=== PATIENT | male | born 1960 | race Caucasian/White ===

== ENCOUNTER 2016-12-04 14:42 | Emergency (ER) ==
[2016-12-04] MEDS ORDERED: MORPHINE 2 MG/ML SYRINGE IVP STA (14:47)
[2016-12-04] MEDS ORDERED: ASPIRIN CHEWABLE PO STA (14:47)
[2016-12-04] MEDS ORDERED: ZOFRAN 4 MG/2 ML IVP STA (14:47)
--- NOTE | 2016-12-04 14:50 | ED.PDOC ---
General ED Provider: Dr. JP TONY Chief Complaint: Chest Pain Stated Complaint: Chest pain, mid sternal, radiates to left arm, more like heavyness feeling. Time Seen by Physician: 14:48 Primary Care Provider: [facility] Nursing and Triage Documentation Reviewed and Agree: Yes Cardiovascular Complaint Exam - Chest Pain Complaint/Exam Onset: Sudden Symptoms Are: Still present Timing: Constant Initial Severity: Moderate Current Severity: Severe Location: Reports: Midsternal Pain Radiates: Reports: Left shoulder, Left arm Character: Reports: Dull, Aching, Heaviness Aggravating: Reports: Exertion Alleviating: Reports: None Associated Signs and Symptoms: Reports: Diaphoresis. Denies: Nausea, Vomiting, Fever, Palpitations, Cough, Hemoptysis, Back pain, Abdominal pain, Dizziness, Short of air, Calf pain, Calf swelling Related History: Reports: Similar episode (years ago, had stents) Related Surgical History: Reports: None AMI/ACS Risk Factors: Reports: Myocardial Infarction Pulmonary Embolism Risk Factors: Reports: None Prior Care for this Complaint: No Recent Stress Test: No Recent Echo/LV Function: No JVD Present: No Subcutaneous Emphysema Present: No Diminshed Breath Sounds: No Reproducible Chest Wall Pain: No Bilateral Pulses Present: Yes Unequal Pulses Noted: No If Risk Factors for AMI/ACS Consider: EKG, Cardiac Enzymes, Serial Studies, Oxygen, Aspirin Differential Diagnoses: ACS, Stable Angina Review of Systems - Review Of Systems Constitutional: Reports: Malaise, Weakness Eyes: Reports: No symptoms Ears, Nose, Mouth, Throat: Reports: No symptoms Respiratory: Reports: No symptoms Cardiac: Reports: Chest pain GI: Reports: No symptoms : Reports: No symptoms Musculoskeletal: Reports: No symptoms Skin: Reports: No symptoms Neurological: Reports: No symptoms Endocrine: Reports: No symptoms Hematologic/Lymphatic: Reports: No symptoms All Other Systems: Reviewed and Negative Past Medical History - Past Medical History Previously Healthy: Yes Endocrine: Reports: None Cardiovascular: Reports: CAD (s/p stents) Respiratory: Reports: None Hematological: Reports: None Gastrointestinal: Reports: None Genitourinary: Reports: None Neuro/Psych: Reports: None Musculoskeletal: Reports: None Cancer: Reports: None - Surgical History General Surgical History: Reports: None - Family History Family History: Reports: None - Social History Smoking Status: Current every day smoker Smoking Cessation Counseling Time: > 3 min - 10 min Hx Substance Use: No Alcohol Screening: None Physical Exam - Physical Exam Appearance: Ill-appearing Pain Distress: Moderate Eyes: MEL, EOMI, Conjunctiva clear ENT: Ears normal, Nose normal, Oropharynx normal Respiratory: Airway patent, Breath sounds clear, Breath sounds equal, Respirations nonlabored Cardiovascular: RRR, Pulses normal, No rub, No murmur GI/: Soft, Nontender, No masses, Bowel sounds normal, No Organomegaly Musculoskeletal: Normal strength, ROM intact, No edema, No calf tenderness Skin: Warm, Dry, Normal color Neurological: Sensation intact, Motor intact, Reflexes intact, Cranial nerves intact, Alert, Oriented Psychiatric: Affect appropriate, Mood appropriate Interpretation - EKG Interpretation Time of EKG #1: 15:00 Rate: Normal Rhythm: Sinus Cornucopia: NL ST Segment: Other (st depression.) Physician Notification - Case Discussed Time of Notification: 15:13 (ed physician dr jones) Critical Care Note - Critical Care Note Total Time (mins): 0 Course - Course Hematology/Chemistry: 12/04/16 14:55 Orders, Labs, Meds: Lab Review 12/04/16 14:55 WBC 6.87 RBC 5.04 Hgb 14.9 Hct 44.0 MCV 87.3 MCH 29.6 MCHC 33.9 RDW Coeff of Vilma 13.4 Plt Count 155 Immature Gran % (Auto) 0.3 Neut % (Auto) 65.9 Lymph % (Auto) 22.6 [place]ison % (Auto) 8.4 Eos % (Auto) 2.5 Baso % (Auto) 0.3 Immature Gran # (Auto) 0.0 Neut # 4.5 Lymph # 1.6 Addison # 0.6 Eos # 0.2 Baso # 0.0 Orders Category Date Time Status EKG-(ED ONLY) Stat CARDIO 12/04/16 14:47 Completed EKG-(ED ONLY) Stat CARDIO 12/04/16 15:09 Ordered ED IV/MEDIPORT/POWERPORT .ONCE EMERGENCY 12/04/16 14:47 Active CBC W/ AUTO DIFF Stat LAB 12/04/16 14:55 Completed COMPREHENSIVE METABOLIC PANEL Stat LAB 12/04/16 14:55 Received CREATINE KINASE Stat LAB 12/04/16 14:55 Received D-DIMER Stat LAB 12/04/16 14:55 Received TROPONIN I Stat LAB 12/04/16 14:55 Received 0.9 % Sodium Chloride [Saline Flush] MEDS 12/04/16 14:47 Ordered 1 syr IVF PRN PRN Aspirin [Aspirin Chewable] MEDS 12/04/16 14:47 Discontinued 324 mg PO ONCE STA Morphine Sulfate [Morphine 2 mg/ml Syringe] MEDS 12/04/16 14:47 Discontinued 2 mg IVP ONCE STA Ondansetron HCl/Pf [Zofran 4 mg/2 ml] MEDS 12/04/16 14:47 Discontinued 4 mg IVP ONCE STA CHEST, 1V AP ONLY Stat RADS 12/04/16 14:47 Taken Medications Generic Name Dose Route Start Last Admin Trade Name Freq PRN Reason Stop Dose Admin Sodium Chloride 1 syr 12/04/16 14:47 12/04/16 14:57 Saline Flush IVF 1 syr PRN PRN Administration To flush IV Discontinued Medications Generic Name Dose Route Start Last Admin Trade Name Freq PRN Reason Stop Dose Admin Aspirin 324 mg 12/04/16 14:47 12/04/16 14:56 Aspirin Chewable PO 12/04/16 14:48 324 mg ONCE STA Administration Morphine Sulfate 2 mg 12/04/16 14:47 12/04/16 14:57 Morphine 2 Mg/Ml Syringe IVP 12/04/16 14:48 2 mg ONCE STA Administration Ondansetron HCl 4 mg 12/04/16 14:47 12/04/16 14:57 Zofran 4 Mg/2 Ml IVP 12/04/16 14:48 4 mg ONCE STA Administration Vital Signs: Temp Pulse Resp BP Pulse Ox 12/04/16 14:42 97.4 F L 88 22 160/84 H 95 ROSIO Risk Score ROSIO Risk Score: Risk Score Odds of by 30D 0 0.1 (0.1-0.2) 1 0.3 (0.2-0.3) 2 0.4 (0.3-0.5) 3 0.7 (0.6-0.9) 4 1.2 (1.0-1.5) 5 2.2 (1.9-2.6) 6 3.0 (2.5-3.6) 7 4.8 (3.8-6.1) Departure - Departure Time of Disposition: 15:13 Disposition: TSF SHORT-TRM HOSP Discharge Problem: Chest pain, Angina at rest Instructions: Chest Pain (ED) Condition: Stable Pt referred to PMD for follow-up: No Allergies/Adverse Reactions: Allergies clopidogrel bisulfate [From Plavix] Allergy (Severe, Verified 04/14/14 12:15) rash pt to get medical alert necklace Disposition Discussed With: Patient, Family
[2016-12-04 14:52] VITALS: BP 160/84; TEMP 97.4; BMI 26.4
[2016-12-04 14:58] LABS: BASOPHILS % (AUTO) 0.3 % (0.0-3.0); EOSINOPHILS # (AUTO) 0.2 K/ul (0.0-0.7); EOSINOPHILS % (AUTO) 2.5 % (0.0-7.0); HEMOGLOBIN 14.9 g/dl (14.0-18.0); IMMATURE GRANULOCYTE % (AUTO) 0.3 % (0.0-5.0); LYMPHOCYTES # (AUTO) 1.6 K/uL (0.60-3.4); LYMPHOCYTES % (AUTO) 22.6 (10.0-50.0); MEAN CORPUSCULAR HEMOGLOBIN 29.6 pg (27.0-31.0); MEAN CORPUSCULAR HGB CONC 33.9 (31.8-35.4); MEAN CORPUSCULAR VOLUME 87.3 fl (80.0-94.0); MONOCYTES # (AUTO) 0.6 K/uL (0.4-2.0); MONOCYTES % (AUTO) 8.4 (0-10); NEUTROPHILS # (AUTO) 4.5 K/ul (2.0-6.9); NEUTROPHILS % (AUTO) 65.9; PLATELET COUNT 155 10^3/uL (140-440); RED BLOOD COUNT 5.04 10^6/ul (4.70-6.10); WHITE BLOOD COUNT 6.87 K/ul (4.2-10.2)
--- NOTE | 2016-12-04 15:18 | DI ---
EXAM: Chest one view HISTORY: Chest, one-view COMPARISON: 04/14/2014 TECHNIQUE: Single view of the chest was performed FINDINGS: The lungs are clear. There is no pleural effusion or pneumothorax. The heart is normal in size. The mediastinal contour is normal. There are no acute abnormalities of the bones. IMPRESSION: No acute cardiopulmonary process.
[2016-12-04 15:22] LABS: ALBUMIN 3.9 g/dL (3.4-5.0); ALBUMIN/GLOBULIN RATIO 1.63; ANION GAP 13.7; BILIRUBIN,TOTAL 0.73 mg/dL (0.00-1.20); BUN/CREATININE RATIO 17.34; CALCIUM 9.4 mg/dL (8.2-10.2); CREATININE 0.98 mg/dL (0.60-1.10); POTASSIUM 3.7 mmol/L (3.5-5.1); TOTAL PROTEIN 6.3 g/dL (6.4-8.2); TROPONIN I 0.188 ng/ml (0.0000-0.4000)
== END 2016-12-04 15:28 | disposition short-term general hospital (02) ==
LOC: ED 14:42
DX: I20.9 Angina pectoris, unspecified (principal); R53.1 Weakness; I25.10 Atherosclerotic heart disease of native coronary artery without angina pectoris; I25.2 Old myocardial infarction; Z95.5 Presence of coronary angioplasty implant and graft; F17.210 Nicotine dependence, cigarettes, uncomplicated
CPT/HCPCS: 36415; 80053; 82550; 84484; 85025; 85379; 93005; 93010; 96374; 96375; 99285

== ENCOUNTER 2016-12-04 15:30 | Outpatient (CLI) ==
[2016-12-04 14:52] VITALS: BMI 26.4
== END 2016-12-04 15:31 | disposition short-term general hospital (02) ==
LOC: AMBL 15:30
PROVIDERS: ATTEND Emergency Medicine
DX: R07.9 Chest pain, unspecified (principal); E78.5 Hyperlipidemia, unspecified; I25.2 Old myocardial infarction; Z95.5 Presence of coronary angioplasty implant and graft

== ENCOUNTER 2017-05-02 14:01 | Emergency (ER) ==
[2017-05-02 14:06] VITALS: BP 122/80; TEMP 99.1; BMI 25.7
[2017-05-02] MEDS ORDERED: SODIUM CHLORIDE 1,000 ML IV STA ×2 (15:29→17:17)
[2017-05-02] MEDS ORDERED: ZOFRAN 4 MG/2 ML IVP STA (15:29)
[2017-05-02] MEDS ORDERED: MORPHINE 2 MG/ML SYRINGE IVP STA (15:30)
--- NOTE | 2017-05-02 16:07 | DI ---
EXAM: Chest two views HISTORY: Cough COMPARISON: 12/04/2016 TECHNIQUE: Two views of the chest were performed FINDINGS: The lungs are clear. There is no pleural effusion or pneumothorax. The heart is normal i n size. The mediastinal contour is normal. Cardiac stent present. There are no acute abnormalities o f the bones. IMPRESSION: No acute cardiopulmonary process.
--- NOTE | 2017-05-02 16:22 | CT ---
EXAM: CT abdomen pelvis without contrast HISTORY: Pain, nausea/vomiting COMPARISON: None TECHNIQUE: CT abdomen pelvis performed without intravenous contrast. Coronal and sagittal reformatt ed images obtained. FINDINGS: The lung bases clear. No free air. No acute abnormalities of the bones. Mild degenerati ve change in the spine. Heart normal in size. Evaluation of the organ parenchyma limited without co ntrast. Liver appears normal. There are several small gallstones. Pancreas unremarkable. Spleen u nremarkable. Adrenals unremarkable. Small area of right renal cortical scarring, likely relates to remote insult. No hydronephrosis or nephrolithiasis. Bladder unremarkable. Prostate mildly enlarge d. Aorta normal in caliber. Mild to moderate atherosclerosis. No lymphadenopathy or ascites. Post surgical changes of prior ventral hernia repair with mesh present. Stomach appears normal. No dilat ed loops small bowel. Scattered fluid-filled loops small bowel may represent mild enteritis. Append ix appears normal. Fluid in the colon. IMPRESSION: 1. Possible mild enteritis. Recommend clinical correlation. Fluid in the colon can be correlated f or diarrhea and may relate to enteritis process. 2. Cholelithiasis. 3. Atherosclerosis. 4. Mildly enlarged prostate.
[2017-05-02] MEDS ORDERED: DUONEB NEB STA (16:47)
[2017-05-02] MEDS ORDERED: PREDNISONE PO STA (16:50)
--- NOTE | 2017-05-02 16:50 | ED.PDOC ---
General ED Provider: Dr. CHRISTOPHER CHAN Chief Complaint: Nausea/Vomiting Stated Complaint: abdominal pain, n,v, d Time Seen by Physician: 14:00 Information Source: Patient Exam Limitations: No limitations [facility] and Triage Documentation Reviewed and Agree: Yes Reviewed sepsis parameters & appropriate labs ordered?: Yes System Inflammatory Response Syndrome: Not Applicable Sepsis Protocol: For patient's 13 years and over: Temp is 96.8 and below OR 101 and greater Pulse >90 BPM Resp >20/minute Acutely Altered Mental Status Are patient's symptoms suggestive of a new infection, such as: -Pneumonia -Skin, Soft Tissue -Endocarditis -UTI -Bone, Joint Infection -Implantable Device -Acute Abdominal Infection -Wound Infection -Meningitis -Blood Stream Catheter Infection -Unknown GI Complaint Exam - Vomiting/Diarrhea Complaint/Exam Onset/Duration: 2 days Symptoms Are: Still present Episodes of Vomiting over last 24 Hours: 4 Episodes of Diarrhea Over Last 24 Hours: 4 Initial Severity: Moderate Current Severity: Mild Character of Vomiting: Reports: Non-bilious Aggravating: Reports: None Alleviating: Reports: None Associated Signs and Symptoms: Reports: Light-headedness, Abdominal pain Non-GI Risk Factors: Reports: None Surgical Obstruction Risk Factors: Reports: None Related Surgical History: Reports: None Abdominal Findings: Present: None Differential Diagnoses: Viral Gastroenteritis Review of Systems - Review Of Systems Constitutional: Reports: No symptoms Eyes: Reports: No symptoms Ears, Nose, Mouth, Throat: Reports: No symptoms Respiratory: Reports: No symptoms Cardiac: Reports: No symptoms GI: Reports: Abdominal pain : Reports: No symptoms Musculoskeletal: Reports: No symptoms Skin: Reports: No symptoms Neurological: Reports: No symptoms Endocrine: Reports: No symptoms Hematologic/Lymphatic: Reports: No symptoms All Other Systems: Reviewed and Negative Past Medical History - Past Medical History Previously Healthy: Yes Endocrine: Reports: None Cardiovascular: Reports: CAD (s/p stents) Respiratory: Reports: None Hematological: Reports: None Gastrointestinal: Reports: None Genitourinary: Reports: None Neuro/Psych: Reports: None Musculoskeletal: Reports: None Cancer: Reports: None - Surgical History General Surgical History: Reports: None - Family History Family History: Reports: None - Social History Smoking Status: Current every day smoker Hx Substance Use: No Alcohol Screening: Occasionally - Immunizations Tetanus Shot up to Date: Yes Physical Exam - Physical Exam Appearance: Well-appearing, No pain distress, Well-nourished Eyes: MEL, EOMI, Conjunctiva clear ENT: Ears normal, Nose normal, Oropharynx normal Respiratory: Airway patent, Breath sounds clear, Breath sounds equal, Respirations nonlabored Cardiovascular: RRR, Pulses normal, No rub, No murmur GI/: Soft, Nontender, No masses, Bowel sounds normal, No Organomegaly Musculoskeletal: Normal strength, ROM intact, No edema, No calf tenderness Skin: Warm, Dry, Normal color Neurological: Sensation intact, Motor intact, Reflexes intact, Cranial nerves intact, Alert, Oriented Psychiatric: Affect appropriate, Mood appropriate Critical Care Note - Critical Care Note Total Time (mins): 0 Course - Course Hematology/Chemistry: 05/02/17 15:48 05/02/17 15:48 Orders, Labs, Meds: Lab Review 05/02/17 05/02/17 05/02/17 15:48 15:48 15:48 WBC 7.11 RBC 5.24 Hgb 15.8 Hct 46.0 MCV 87.8 MCH 30.2 MCHC 34.3 RDW Coeff of Vilma 13.1 Plt Count 122 L Immature Gran % (Auto) 0.3 Neut % (Auto) 72.0 Lymph % (Auto) 13.1 Banner % (Auto) 13.8 H Eos % (Auto) 0.7 Baso % (Auto) 0.1 Immature Gran # (Auto) 0.0 Neut # 5.1 Lymph # 0.9 Banner # 1.0 Eos # 0.1 Baso # 0.0 Sodium 137 Potassium 3.8 Chloride 101 Carbon Dioxide 27 Anion Gap 12.8 BUN 22 H Creatinine 0.81 Estimated GFR (MDRD) 99.00 BUN/Creatinine Ratio 27.16 Glucose 88 Calcium 9.2 Total Bilirubin 1.1 AST 28 ALT 32 Alkaline Phosphatase 87 Total Creatine Kinase 184 CK-MB (CK-2) 2.7 CK-MB (CK-2) % 1.34980 Troponin I < 0.0100 Total Protein 6.8 Albumin 3.7 Globulin 3.1 Albumin/Globulin Ratio 1.19 Procalcitonin 0.05 Influenza A (Rapid) Influenza B (Rapid) 05/02/17 15:57 WBC RBC Hgb Hct MCV MCH MCHC RDW Coeff of Vilma Plt Count Immature Gran % (Auto) Neut % (Auto) Lymph % (Auto) Banner % (Auto) Eos % (Auto) Baso % (Auto) Immature Gran # (Auto) Neut # Lymph # Banner # Eos # Baso # Sodium Potassium Chloride Carbon Dioxide Anion Gap BUN Creatinine Estimated GFR (MDRD) BUN/Creatinine Ratio Glucose Calcium Total Bilirubin AST ALT Alkaline Phosphatase Total Creatine Kinase CK-MB (CK-2) CK-MB (CK-2) % Troponin I Total Protein Albumin Globulin Albumin/Globulin Ratio Procalcitonin Influenza A (Rapid) Positive by naat H Influenza B (Rapid) Negative by naat Orders Category Date Time Status EKG-(ED ONLY) Stat CARDIO 05/02/17 15:27 Completed NEBULIZER TREATMENT Stat CARDIO 05/02/17 16:47 Ordered ED IV/MEDIPORT/POWERPORT .ONCE EMERGENCY 05/02/17 15:29 Active BLOOD CULTURE Stat LAB 05/02/17 16:10 Received CBC W/ AUTO DIFF Stat LAB 05/02/17 15:48 Completed COMPREHENSIVE METABOLIC PANEL Stat LAB 05/02/17 15:48 Completed CREATINE KINASE Stat LAB 05/02/17 15:48 Completed MOLECULAR GROUP A STREP Stat LAB 05/02/17 15:57 Results PROCALCITONIN Stat LAB 05/02/17 15:48 Completed RAPID FLU A/B Stat LAB 05/02/17 15:57 Completed STREP SCREEN Stat LAB 05/02/17 15:57 Results TROPONIN I Stat LAB 05/02/17 15:48 Completed URINALYSIS C & S IF INDICATED Stat LAB 05/02/17 15:26 Uncollected 0.9 % Sodium Chloride [Saline Flush] MEDS 05/02/17 15:29 Active 1 syr IVF PRN PRN Ipratropium/Albuterol Neb [Duoneb] MEDS 05/02/17 16:47 Stat 1 vial NEB ONCE STA Morphine Sulfate [Morphine 2 mg/ml Syringe] MEDS 05/02/17 15:30 Discontinued 2 mg IVP ONCE STA Ondansetron HCl/Pf [Zofran 4 mg/2 ml] MEDS 05/02/17 15:29 Discontinued 4 mg IVP ONCE STA Sodium Chloride 0.9% [Sodium Chloride] 1,000 ml MEDS 05/02/17 15:29 Discontinued IV BOLUS CHEST, 2 VIEWS PA & LAT Stat RADS 05/02/17 15:[address] ABDOMEN/PELVIS WO CONTRAST Stat RADS 05/02/17 15:27 Completed Medications Generic Name Dose Route Start Last Admin Trade Name Freq PRN Reason Stop Dose Admin Albuterol/Ipratropium 1 vial 05/02/17 16:47 Duoneb NEB 05/02/17 16:48 ONCE STA Sodium Chloride 1 syr 05/02/17 15:29 Saline Flush IVF PRN PRN To flush IV Discontinued Medications Generic Name Dose Route Start Last Admin Trade Name Freq PRN Reason Stop Dose Admin Sodium Chloride 1,000 mls @ 1,000 mls/hr 05/02/17 15:29 05/02/17 16:35 Sodium Chloride IV 05/02/17 16:28 1,000 mls/hr BOLUS STA Administration Morphine Sulfate 2 mg 05/02/17 15:30 05/02/17 16:34 Morphine 2 Mg/Ml Syringe IVP 05/02/17 15:31 2 mg ONCE STA Administration Ondansetron HCl 4 mg 05/02/17 15:29 05/02/17 16:35 Zofran 4 Mg/2 Ml IVP 05/02/17 15:30 4 mg ONCE STA Administration Vital Signs: Temp Pulse Resp BP Pulse Ox 05/02/17 14:02 99.1 F 80 20 122/80 89 L Departure - Departure Time of Disposition: 18:00 Disposition: HOME SELF-CARE Discharge Problem: Nausea, Vomiting, Acute gastroenteritis Instructions: Gastroenteritis (ED) Condition: Good Pt referred to PMD for follow-up: Yes Additional Instructions: Please call your Family Physician as soon as possible to schedule a follow-up appointment. Allergies/Adverse Reactions: Allergies clopidogrel bisulfate [From Plavix] Allergy (Severe, Verified 05/02/17 14:42) rash pt to get medical alert necklace Home Medications: Ambulatory Orders Aspirin 81 mg PO d 12/13/16 Lisinopril 5 mg PO d 12/13/16 Disposition Discussed With: Patient
== END 2017-05-02 18:25 | disposition home or self-care (01) ==
LOC: ED 14:01
DX: K52.9 Noninfective gastroenteritis and colitis, unspecified (principal); I25.10 Atherosclerotic heart disease of native coronary artery without angina pectoris; Z95.5 Presence of coronary angioplasty implant and graft; F17.210 Nicotine dependence, cigarettes, uncomplicated
CPT/HCPCS: 36415; 80053; 81001; 82550; 82553; 84145; 84484; 85025; 87040; 87502; 87651; 87880; 93005; 93010; 94640; 96360; 96361; 99284

== ENCOUNTER 2018-10-04 08:02 | Outpatient (CLI) | END 2018-10-04 08:03 | disposition home or self-care (01) | LOC: RHC-LAB 08:02 | PROVIDERS: ATTEND Nurse Practitioner Family | DX: Z00.00 Encounter for general adult medical examination without abnormal findings (principal) | CPT/HCPCS: 36415; 80053; 80061; 84443; 85025 ==

== ENCOUNTER 2018-10-29 06:50 | Outpatient (CLI) ==
--- NOTE | 2018-10-30 10:20 | ECHO2D ---
Date of Exam: 10/29/18 Ordering Physician: DR. EVY FRIEDMAN Room #: OP Reason for Echo: SOB, CHEST PAIN M-Mode Normal Adult Results LV Dimensions Normal Adult Results AoV Opening excursions >1.6 >1.6 LVEDD-base- 3.5-5.8 4.9 Ao root dimensions 2.0-3.7 3.5 LVESD-base- 3.1-4.6 L. Atrium dimensions 1.9-3.8 4.1 Post. Wall thickness 0.8-1.1 1.2 IV septum (thickness) 0.7-1.2 1.3 Post. Wall excursion 0.72-1.3 NORMAL Septal motion NORMAL Systolic motion R. Ventricular cavity 1.5-2.0 NORMAL LVEF 60% 53% Paradoxical septal wall motion NORMAL 2-D : ENLARGED LEFT ATRIAL CAVITY--NORMAL LEFT VENTRICULAR CONTRACTILITY-- NORMAL VALVES, NO EFFUSION, NO THROMBUS M-MODE: MV: NORMAL AV: NORMAL TV: NORMAL PV: CHAMBER SIZE: ENLARGED LEFT ATRIAL CAVITY WALL MOTION: NORMAL PERICARDIUM: NORMAL INTERPRETATION: 1. LEFT VENTRICULAR HYPERTROPHY WITH ENLARGED LEFT ATRIAL CAVITY 2. NORMAL VALVES 3. NORMAL LEFT VENTRICULAR CONTRACTILITY MTDD
== END 2018-10-29 06:51 | disposition home or self-care (01) ==
LOC: CAR 06:50
PROVIDERS: ATTEND Internal Medicine
DX: R06.02 Shortness of breath (principal); R07.9 Chest pain, unspecified

== ENCOUNTER 2018-10-30 07:00 | Outpatient (CLI) ==
--- NOTE | 2018-10-30 09:41 | STRESSECHO ---
Date of Test: 10/30/18 Ordering Physician: DR. ALOK FRIEDMAN Occupation: [facility] Reason for Exam: CHEST PAIN, SOB Smoking History: 50 PK/YRS Height: 73" Weight : 195 LBS Current Medications: LIPITOR, ASA Resting EKG: SINUS RHYTHM/ NO ACUTE CHANGES Target Heart Rate: 137/162 S-T SEGMENT STAGE MPH/GRADE HEART RATE BPM BLOOD PRESSURE MMHG RHYTHM +/- ELEVATION DEPRESSION SYMPTOMS AT REST 54 BPM 118/62 MMHG SR X NONE 1 1.7/10% 90 BPM 130/60 MMHG SR X NONE 2 2.5/12% 125 BPM SR X NONE 3 3.4/14% 4 4.2/16% 5 5.0/18% Immediately After 137 BPM 162/80 MMHG SR X SHORT OF AIR Minutes Post Exercise 5:00 138/60 MMHG SR X NONE Minutes Post Exercise DURATION OF EXERCISE: 6:31 MAXIMUM HEART RATE REACHED: 137 BPM REASON FOR TERMINATION: SHORT OF AIR 92% OXYGEN SATURATION WITH EXERCISE ON ROOM AIR METS: 8.5 INTERPRETATION: 1. TEST NEGATIVE FOR ISCHEMIC ST-T WAVE CHANGES 2. NO CHEST PAIN OR DISCOMFORT 3. NO ARRHYTHMIAS 4. BLOOD PRESSURE RESPONSE: NORMAL NORMAL LEFT VENTRICULAR CONTRACTILITY--RESTING AND POST EXERCISE MTDD
--- NOTE | 2018-10-31 13:33 | ECHOSTRESS ---
Date of Exam: 10/30/18 Ordering Physician: DR. EVY FRIEDMAN Reason for Echo: CHEST PAIN, SOB, STRESS TEST--NO ISCHEMIA M-Mode Normal Adult Results LV Dimensions Normal Adult Results AoV Opening excursions >1.6 LVEDD-base- 3.5-5.8 Ao root dimensions 2.0-3.7 LVESD-base- 3.1-4.6 L. Atrium dimensions 1.9-3.8 Post. Wall thickness 0.8-1.1 IV septum (thickness) 0.7-1.2 Post. Wall excursion 0.72-1.3 Septal motion Systolic motion R. Ventricular cavity 1.5-2.0 LVEF 60% Paradoxical septal wall motion 2-D: NORMAL LEFT VENTRICULAR CONTRACTILITY--RESTING AND POST EXERCISE M-MODE: MV: AV: TV: PV: CHAMBER SIZE: WALL MOTION: NORMAL LEFT VENTRICULAR CONTRACTILITY--RESTING AND POST EXERCISE PERICARDIUM: INTERPRETATION: 1. NORMAL LEFT VENTRICULAR CONTRACTILITY--RESTING AND POST EXERCISE MTDD
== END 2018-10-30 07:01 | disposition home or self-care (01) ==
LOC: CAR 07:00
PROVIDERS: ATTEND Internal Medicine
DX: R06.02 Shortness of breath (principal); R07.9 Chest pain, unspecified

== ENCOUNTER 2018-11-24 11:28 | Emergency (ER) ==
[2018-11-24 11:34] VITALS: BP 115/80; TEMP 97; BMI 26.0
--- NOTE | 2018-11-24 11:43 | ED.PDOC ---
General ED Provider: Dr. ANGE ESTEVEZ Chief Complaint: Cough Stated Complaint: Patient comes to the ER with a 2 day hx of productive cough hx smoking, no fever, denies any chest pain. Follow up with Cardiology for his CAD. has been taking his medications including cholesteral meds. Time Seen by Physician: 11:40 Mode of Arrival: Walk-In Information Source: Patient Exam Limitations: No limitations Primary Care Provider: ULISSES BREWSTER Nursing and Triage Documentation Reviewed and Agree: Yes Does patient meet sepsis criteria?: No System Inflammatory Response Syndrome: Not Applicable Sepsis Protocol: For patient's 13 years and over: Temp is 96.8 and below OR 101 and greater Pulse >90 BPM Resp >20/minute Acutely Altered Mental Status Are patient's symptoms suggestive of a new infection, such as: -Pneumonia -Skin, Soft Tissue -Endocarditis -UTI -Bone, Joint Infection -Implantable Device -Acute Abdominal Infection -Wound Infection -Meningitis -Blood Stream Catheter Infection -Unknown Review of Systems - Review Of Systems Constitutional: Denies: Fever Eyes: Reports: No symptoms Ears, Nose, Mouth, Throat: Reports: No symptoms Respiratory: Reports: Cough, Short of air (mild ) Cardiac: Reports: No symptoms GI: Reports: No symptoms : Reports: No symptoms Musculoskeletal: Reports: No symptoms Skin: Reports: No symptoms Neurological: Reports: No symptoms Endocrine: Reports: No symptoms Hematologic/Lymphatic: Reports: No symptoms All Other Systems: Reviewed and Negative Past Medical History - Past Medical History Previously Healthy: Yes Endocrine: Reports: Dyslipidemia Cardiovascular: Reports: CAD (s/p stents) Respiratory: Reports: None Hematological: Reports: None Gastrointestinal: Reports: None Genitourinary: Reports: None Neuro/Psych: Reports: None Musculoskeletal: Reports: None Cancer: Reports: None - Surgical History General Surgical History: Reports: Stent - Family History Family History: Reports: None - Social History Smoking Status: Current every day smoker (for many years ) Hx Substance Use: No Alcohol Screening: Occasionally - Immunizations Tetanus Shot up to Date: No Physical Exam - Physical Exam Appearance: Ill-appearing Ill-appearing: Mild Neck: Supple Respiratory: Airway patent, Breath sounds clear, Breath sounds equal, Respirations nonlabored Cardiovascular: RRR, Pulses normal, No rub, No murmur GI/: Soft, Nontender, No masses, Bowel sounds normal, No Organomegaly Musculoskeletal: Normal strength Skin: Warm Neurological: Sensation intact, Motor intact Critical Care Note - Critical Care Note Total Time (mins): 0 Course - Course Hematology/Chemistry: 11/24/18 11:48 11/24/18 11:48 Orders, Labs, Meds: Lab Review 11/24/18 11/24/18 11:48 11:48 WBC 7.44 RBC 5.09 Hgb 14.9 Hct 44.6 MCV 87.6 MCH 29.3 MCHC 33.4 RDW Coeff of Vilma 13.5 Plt Count 149 Immature Gran % (Auto) 0.1 Neut % (Auto) 68.9 Lymph % (Auto) 19.0 [place] % (Auto) 9.3 Eos % (Auto) 2.3 Baso % (Auto) 0.4 Immature Gran # (Auto) 0.0 Neut # (Auto) 5.1 Lymph # (Auto) 1.4 [place] # (Auto) 0.7 Eos # (Auto) 0.2 Baso # (Auto) 0.0 Sodium 138.3 Potassium 4.05 Chloride 101.8 Carbon Dioxide 27.6 Anion Gap 12.95 BUN 11.3 Creatinine 0.76 Estimated GFR (MDRD) 105.00 BUN/Creatinine Ratio 14.86 Glucose 83.8 Calcium 8.92 Total Bilirubin 1.03 AST 19.0 ALT 20.9 Alkaline Phosphatase 86.0 Total Protein 7.00 Albumin 4.27 Globulin 2.73 Albumin/Globulin Ratio 1.56 Orders Category Date Time Status NEBULIZER TREATMENT Stat CARDIO 11/24/18 11:47 Completed CBC W/ AUTO DIFF Stat LAB 11/24/18 11:48 Completed COMPREHENSIVE METABOLIC PANEL Stat LAB 11/24/18 11:48 Completed Ipratropium/Albuterol Neb [Duoneb] MEDS 11/24/18 11:47 Discontinued 1 vial NEB ONCE STA Prednisone MEDS 11/24/18 11:47 Discontinued 40 mg PO ONCE STA CHEST, 2 VIEWS PA & LAT Stat RADS 11/24/18 11:39 Completed Medications Discontinued Medications Generic Name Dose Route Start Last Admin Trade Name Freq PRN Reason Stop Dose Admin Albuterol/Ipratropium 1 vial 11/24/18 11:47 11/24/18 12:10 Duoneb NEB 11/24/18 11:48 1 vial ONCE STA Administration Prednisone 40 mg 11/24/18 11:47 11/24/18 12:01 Prednisone PO 11/24/18 11:48 40 mg ONCE STA Administration Vital Signs: Temp Pulse Resp BP Pulse Ox 11/24/18 11:29 97.0 F L 67 18 115/80 94 L Departure - Departure Time of Disposition: 12:20 Disposition: HOME SELF-CARE Discharge Problem: Acute bronchitis Qualifiers: Bronchitis organism: unspecified organism Qualified Code(s): J20.9 - Acute bronchitis, unspecified Instructions: Acute Bronchitis (ED) Condition: Stable Pt referred to PMD for follow-up: Yes IPMP verified?: No Additional Instructions: STOP smoking Take medications as prescribed Follow up with PCP in 3 days. Prescriptions: Albuterol Sulfate [Proair Hfa] 2 puff IH Q6H PRN #1 puff PRN Reason: wheezing Azithromycin [Zithromax] 250 mg PO DIRECTED #6 tablet Prednisone 20 mg PO DAILYWM #5 tablet Allergies/Adverse Reactions: Allergies clopidogrel bisulfate [From Plavix] Allergy (Severe, Verified 11/24/18 11:43) rash pt to get medical alert necklace Home Medications: Ambulatory Orders Aspirin 81 mg PO d 12/13/16 Albuterol Sulfate [Proair Hfa] 2 puff IH Q6H PRN #1 puff 11/24/18 Azithromycin [Zithromax] 250 mg PO DIRECTED #6 tablet 11/24/18 Prednisone 20 mg PO DAILYWM #5 tablet 11/24/18 Disposition Discussed With: Patient
[2018-11-24] MEDS ORDERED: DUONEB NEB STA (11:47)
[2018-11-24] MEDS ORDERED: PREDNISONE PO STA (11:47)
--- NOTE | 2018-11-24 12:15 | DI ---
EXAMINATION: Frontal and lateral views of the chest. HISTORY: Productive cough for 2 days COMPARISON: None available. FINDINGS: The lungs are hyperexpanded. No focal consolidation, pleural effusion or pneumothorax is identified. The cardiomediastinal silhouette is within normal limits. A coronary artery stent is noted. There is mild multilevel multilevel degenerative disc disease. IMPRESSION: No acute cardiopulmonary findings. Suggestion of emphysema.
== END 2018-11-24 12:26 | disposition home or self-care (01) ==
LOC: ED 11:28
DX: J20.9 Acute bronchitis, unspecified (principal); R06.02 Shortness of breath; I25.10 Atherosclerotic heart disease of native coronary artery without angina pectoris; E78.5 Hyperlipidemia, unspecified; F17.210 Nicotine dependence, cigarettes, uncomplicated; Z79.899 Other long term (current) drug therapy; Z95.5 Presence of coronary angioplasty implant and graft
CPT/HCPCS: 36415; 80053; 85025; 94640; 99282